=== PATIENT | female | born 1970 | race Caucasian/White ===

== ENCOUNTER 2019-01-14 08:53 | Observation (INO) ==
[2019-01-14] MEDS ORDERED: SODIUM CHLORIDE 0.9% 1000ML 1,000 ML IV ONE (09:33)
--- NOTE | 2019-01-14 09:56 | XRay Report ---
XR chest 1V portable CLINICAL HISTORY: Stroke. COMPARISON STUDY: 08/23/2016 FINDINGS: The cardiac and mediastinal contours are normal. There is no evidence of focal pulmonary co nsolidation. There is no evidence of failure. No pleural effusions are visualized.[ IMPRESSION: No active disease in the chest. Electronically signed by: Floyd Grant M.D. 01/14/2019 9:54 AM
[2019-01-14 09:57] LABS: Basophils # (auto) 0.04 K/uL (0-0.2); Basophils % (auto) 0.3 %; Eosinophils % (auto) 2.6 %; Hematocrit (blood only) 37.9 % (37-47); Hemoglobin 12.7 g/dL (12.0-16.0); Immature Granulocytes # (auto) 0.03 K/uL (0.00-0.02); Immature Granulocytes % (auto) 0.3 %; Lymphocytes # (auto) 1.48 K/uL (1.2-3.4); Lymphocytes % (auto) 12.6 %; Mean Corpuscular Hgb Conc 33.5 g/dL (32-36); Mean Corpuscular Volume 89.2 fL (80-100); Mean Platelet Volume 10.3 fL (7.4-10.4); Monocytes # (auto) 0.75 K/uL (0.11-0.59); Monocytes % (auto) 6.4 %; Neutrophils % (auto) 77.8 %; Platelet Count 337 K/uL (130-400); RDW Coefficient of Variation 13.5 % (11.5-14.5); RDW Standard Deviation 44.1 fL (36.4-46.3); Red Blood Count 4.25 M/uL (4.2-5.4)
[2019-01-14 10:08] LABS: Partial Thromboplastin Ratio 0.8; Partial Thromboplastin Time 22.8 Seconds (21.0-31.0); Prothrombin Time 10.3 Seconds (9.0-12.0)
--- NOTE | 2019-01-14 10:10 | CT Scan Report ---
CT OF THE HEAD WITHOUT CONTRAST CLINICAL HISTORY: Stroke evaluation COMPARISON STUDY: No previous studies for comparison. CT DOSE: 614.27 mGy.cm TECHNIQUE: Helical axial images of the head were obtained without IV contrast. Automated exposure con trol was utilized for the study. A dose lowering technique was utilized adhering to the principles o f ALARA. FINDINGS: No acute intracranial hemorrhage, midline shift or mass effect is present. Brain findings n ormal. Ventricular system is normal. The basilar cisterns are patent. There are no extra-axial collec tions. Randall-white differentiation is maintained. There are no findings to suggest acute dural sinus t hrombosis or acute territorial infarct. There is mild ethmoid sinus mucosal thickening. There are no significant calvarial abnormalities. IMPRESSION: No acute intracranial findings. Electronically signed by: Froilan Restrepo M.D. 01/14/2019 10:09 AM
[2019-01-14 10:12] LABS: Alanine Aminotransferase 21 U/L (12-78); Albumin Level 3.4 gm/dl (3.4-5.0); Aspartate Aminotransferase 16 U/L (15-37); BUN Creatinine Ratio 16.2 (10-20); Blood Urea Nitrogen 11 mg/dl (7-18); Calcium 8.9 mg/dl (8.5-10.1); Carbon Dioxide 27 mmol/L (21-32); Chloride 106 mmol/L (98-107); Creatinine Clr Calc Pharmacy 98.5 ml/min; Est GFR (African American) 118.7; Est GFR (Non-African American) 102.5; Glucose 94 mg/dl (70-99); Magnesium 2.2 mg/dl (1.8-2.4); Potassium 4.1 mmol/L (3.5-5.1); Sodium 139 mmol/L (136-145)
[2019-01-14 10:17] LABS: Albumin Globulin Ratio 0.8 (0.9-2); Alkaline Phosphatase 83 U/L (45-117); Bilirubin,Total 0.7 mg/dl (0.2-1); Globulin 4.2 gm/dl (2.5-4.0); Total Protein 7.6 gm/dl (6.4-8.2); Troponin I < 0.015 ng/ml (0-0.045)
[2019-01-14] MEDS ORDERED: KETOROLAC TROMETHAMINE 15 MG/ML VIAL IV ONE (11:52)
[2019-01-14] MEDS ORDERED: PROCHLORPERAZINE 2 ML IV ONE (11:52)
[2019-01-14] MEDS ORDERED: DiphenhydrAMINE HCL 50 MG/ML VIAL IV STA (11:52)
--- NOTE | 2019-01-14 14:17 | History & Physical Report ---
Date of Service January 14, 2019 Assessment & Plan (1) Headache: (2) Paresthesia: This is a 48yo F with a PMH of asthma and hypothyroidism who presents with headache and LUE paresthesias early this morning. -Headache improved after migraine cocktail, still experiencing LUE paresthesias -Considered cervical radiculopathy but no neck pain/reduced ROM -CT head without acute abnormality -Check MRI brain w/wo contrast, carotid doppler ultrasound, echo w/ bubble study -Full dose aspirin given.Baby aspirin and atorvastatin 40mg to be given in AM -Neuro checks, PT, OT, speech therapy evaluations -Routine neurology consult (3) Hypothyroidism: TSH pending -Continue levothyroxine (4) Asthma: Recent asthma exacerbation 2 weeks ago but back to baseline -No shortness of breath, lung exam without wheezing -Continue home Breo Ellipta inhaler, albuterol inhaler/nebs PRN DVT Ppx: SQ Lovenox Code status: FULL PCP: Nini Dispo: Observation med tele. Plan to return home once medically stable. Patient seen in collaboration with Dr. Sanders. Please see addendum. History of Present Illness Chief Complaint: headache, LUE parethesias Primary Care Provider: Ninfa Terrazas MD This is a 48yo F with a PMH of asthma and hypothyroidism who presents with headache starting early this morning. Patient woke up around 3 AM with a throbbing frontal headache and then developed left upper extremity numbness and tingling approximately an hour later. Denies any difficulty speaking or swallowing, weakness or ambulatory dysfunction. No chest pain or shortness of breath. Denies history of headaches or migraine. No personal or family stroke history. Had an asthma exacerbation and URI 2 weeks ago and has completed course of antibiotics and prednisone. Also, was started on sertaline last week for pre-menopausal symptoms. Denies fever, chills, lightheadedness, visual changes, confusion, neck pain, chest pain, palpitations, shortness of breath, nausea, vomiting, abdominal pain, dysuria, diarrhea or constipation. Follows with Dr. Terrazas as PCP. In ED, was found to be afebrile and hemodynamically stable. Lab work with mild leukocytosis of 11.7 K, no other abnormalities noted. Was given migraine cocktail of Compazine, Toradol and Benadryl with resolution of headache. Still experiencing left upper extremity paresthesias, particularly in dorsum of left hand. CT head without acute changes. Chest x-ray without acute cardiopulmonary findings. EKG with normal sinus rhythm. ED provider discussed with Dr. Pimentel, who would like to bring patient in for stroke workup. Allergies Allergy/AdvReac Type Severity Reaction Status Date / Time amoxicillin Allergy Severe airway Unverified 08/19/16 11:37 closed Sulfa (Sulfonamide Allergy Severe closes Verified 08/19/16 11:37 Antibiotics) airway Home Medications Home Medications Medication Instructions Recorded Confirmed Type albuterol sulfate 1.25 mg INHALATION QID PRN 01/14/19 01/14/19 History albuterol sulfate 2 puff INHALATION QID PRN 01/14/19 01/14/19 History fluticasone-vilanterol [Breo 1 inh INHALATION DAILY 01/14/19 01/14/19 History Ellipta] levothyroxine 50 mcg PO DAILY 01/14/19 01/14/19 History multivitamin 1 cap PO DAILY 01/14/19 01/14/19 History norethindrone-ethin estradiol 1 tab PO DAILY 01/14/19 01/14/19 History [Jose Daniel (28)] pantoprazole [Protonix] 40 mg PO DAILY PRN 01/14/19 01/14/19 History sertraline 25 mg PO DAILY 01/14/19 01/14/19 History Past Med/Surg History Medical History Asthma (Chronic) Hypothyroidism (Chronic) Surgical History History of gastric bypass (Chronic) Family History Other Diabetes Gallbladder disease Heart disease Hypertension Lung disease Social History Preferred Language: Setswana Communication Ability: Effective Beliefs That Will Affect Care: None marital status: Current Living Situation: Alone current occupational status: employed Other Information That Helps Us Care for You: No Feels Safe at Home: Yes Safety Concerns: Feels Safe At This Time Smoking Status: Never smoker Hx Alcohol Use: No Hx Substance Use: No Review of Systems All systems reviewed & are unremarkable except as noted in HPI & below Physical Exam Vital Signs (Past 24 Hours): Last Vital Signs Temp 36.7 C 01/14/19 09:01 Pulse 59 L 01/14/19 13:23 Resp 20 01/14/19 13:23 BP 140/81 01/14/19 13:23 Pulse Ox 98 01/14/19 13:23 Physical Exam: General Appearance: WD/WN, no apparent distress Head: normocephalic, atraumatic Eyes: normal inspection, PERRL, EOMI ENT: hearing grossly normal, pharynx normal (moist mucous membranes) Neck: supple, no JVD, no adenopathy Respiratory/Chest: lungs clear to auscultation. No wheezes, rales or rhonci. No respiratory distress or accessory muscle use Cardiovascular: regular rate, rhythm, no murmur, normal peripheral pulses Abdomen/GI: normal bowel sounds, soft, non-tender to palpation Extremities/Musculoskelatal: normal inspection, no calf tenderness, normal capillary refill, no pedal edema Neurologic/Psych: alert, normal mood/affect, oriented x 3. CN II-XII grossly intact. Strength and sensation intact throughout extremities Skin: normal color, warm/dry Results & Data Laboratory Results Short CBC 01/14/19 Range/Units 09:45 WBC 11.70 H (4.8-10.8) K/uL Hgb 12.7 (12.0-16.0) g/dL Hct 37.9 (37-47) % Plt Count 337 (130-400) K/uL BMP 01/14/19 09:45 Sodium 139 Potassium 4.1 Chloride 106 Carbon Dioxide 27 BUN 11 Creatinine 0.70 Glucose 94 Calcium 8.9 Cardiac Enzymes 01/14/19 Range/Units 09:45 Troponin I < 0.015 (0-0.045) ng/ml Liver Function 01/14/19 Range/Units 09:45 Total Bilirubin 0.7 (0.2-1) mg/dl AST 16 (15-37) U/L ALT 21 (12-78) U/L Alkaline Phosphatase 83 (45-117) U/L Albumin 3.4 (3.4-5.0) gm/dl Diagnostic Findings CT head: IMPRESSION: No acute intracranial findings. CXR: IMPRESSION: No active disease in the chest. ECG Rhythm: normal sinus Code Status & VTE Plan Code Status FULL VTE Prophylaxis Plan VTE Prophylaxis will be ordered: Yes Supervising Physician Co-Signing Physician Notes Attending addendum: The patient was seen and examined in emergency room She is a 48yo F with a PMH of asthma and hypothyroidism who presents with headache and LUE paresthesias early this morning. 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 No focal sensory and motor deficit appreciated Admission labs, imaging studies and EKG reviewed Unremarkable labs and examination Presented with strokelike symptoms Agree with assessment and plan as outlined above by Moises Sanders (1) Headache Headache chronicity pattern: unspecified pattern Headache type: unspecified Intractability: not intractable Qualified Code(s): R51 - Headache
--- NOTE | 2019-01-14 15:54 | Emergency Department Note ---
Entered by Mila Wills acting as a scribe for History of Present Illness General Chief complaint: Headache Stated complaint: HEADACHE, TINGLING L ARM AND FINGERS, TOES NUMB Source: patient History of Present Illness Onset (ago): hour(s) (6.5 hours ago) Location: head Pain Consistency: + other (episode) Maximum Pain Intensity: 4 Quality: + aching Associated symptoms: + denies other symptoms (neck pain, rhinorrhea, abdominal pain, diarrhea), + weakness (in left hand) and + other (numbness/tingling in left arm, tingling in toes, leg cramping, left shoulder pain); no chest pain, no cough and no nausea/vomiting The patient is a 48 year old female who presents to the Emergency Room with complaints of an episode of a headache starting 6.5 hours ago. The patient states that she woke up with the headache and it is in the front of her head. She states that 2 hours after the headache started she noticed a numbness and tingling in her left arm. She states that it feels similar to pins and needles. She states that the tingling is on the top part of her arm. She states that it goes the whole way down to her hand and was more her pinky and ring finger till she arrived here. She states that since arrival at the ED the tingling has radiated over into the other three fingers. She notes that she also developed a left shoulder pain since arriving. She notes that none of the tingling is on the palm of her hand. 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 The patient denies cough, rhinorrhea, neck pain, chest pain, abdominal pain, nausea, vomiting, diarrhea, and a history of strokes. Home Medications Home Medications Medication Instructions Recorded Confirmed Type albuterol sulfate 1.25 mg INHALATION QID PRN 01/14/19 01/14/19 History albuterol sulfate 2 puff INHALATION QID PRN 01/14/19 01/14/19 History fluticasone-vilanterol [Breo 1 inh INHALATION DAILY 01/14/19 01/14/19 History Ellipta] levothyroxine 50 mcg PO DAILY 01/14/19 01/14/19 History multivitamin 1 cap PO DAILY 01/14/19 01/14/19 History norethindrone-ethin estradiol 1 tab PO DAILY 01/14/19 01/14/19 History [Jose Daniel (28)] pantoprazole [Protonix] 40 mg PO DAILY PRN 01/14/19 01/14/19 History sertraline 25 mg PO DAILY 01/14/19 01/14/19 History Allergies Allergy/AdvReac Type Severity Reaction Status Date / Time amoxicillin Allergy Severe airway Unverified 08/19/16 11:37 closed Sulfa (Sulfonamide Allergy Severe closes Verified 08/19/16 11:37 Antibiotics) airway Past Med/Surg History Medical History Asthma (Chronic) Hypothyroidism (Chronic) Surgical History History of gastric bypass (Chronic) Family History Other Diabetes Gallbladder disease Heart disease Hypertension Lung disease Social History Preferred Language: [place] Communication Ability: Effective Beliefs That Will Affect Care: None marital status: Current Living Situation: Alone current occupational status: employed Other Information That Helps Us Care for You: No Feels Safe at Home: Yes Safety Concerns: Feels Safe At This Time Smoking Status: Never smoker Hx Alcohol Use: No Hx Substance Use: No Review of Systems See HPI for pertinent positives & negatives. and A total of 10 systems reviewed and were otherwise negative Physical Exam Vital Signs Vital Signs - 24 hr 01/14/19 09:01 01/14/19 12:33 01/14/19 13:23 Temperature 36.7 C Temperature Source Oral Sepsis Recent Fever Within 48 Hours No Sepsis New/Unexplained Change in Mental Status No Sepsis Action Taken by Nursing No Action Required Pulse Rate 77 Pulse Rate [Apical] 59 L Respiratory Rate 20 20 20 Respiratory Effort / Characteristics Non-Labored Spontaneous Respiratory Depth Normal Respiratory Pattern Regular Blood Pressure 137/87 Blood Pressure [Right Arm] 140/81 Blood Pressure Mean 103 Blood Pressure Mean [Right Arm] 100 Pulse Oximetry 98 98 98 Oxygen Delivery Method Room Air Room Air Room Air 01/14/19 13:56 Temperature Temperature Source Sepsis Recent Fever Within 48 Hours Sepsis New/Unexplained Change in Mental Status Sepsis Action Taken by Nursing Pulse Rate Pulse Rate [Apical] Respiratory Rate Respiratory Effort / Characteristics Respiratory Depth Respiratory Pattern Blood Pressure Blood Pressure [Right Arm] Blood Pressure Mean Blood Pressure Mean [Right Arm] Pulse Oximetry Oxygen Delivery Method Room Air GENERAL: Sitting up in bed, alert, well appearing, well nourished, no distress, non-toxic EYE EXAM: normal conjunctiva. OROPHARYNX: no exudate, no erythema, lips, buccal mucosa, and tongue normal and mucous membranes are moist NECK: supple, no nuchal rigidity, no adenopathy, non-tender LUNGS: Clear to auscultation. Normal chest wall mechanics HEART: no murmurs, S1 normal and S2 normal ABDOMEN: abdomen soft, non-tender, normo-active bowel, sounds, no masses, no rebound or guarding. BACK: Back is symmetrical on inspection and there is no deformity, no midline tenderness, no CVA tenderness. SKIN: no rashes and no bruising UPPER EXTREMITIES: upper extremities are grossly normal. LOWER EXTREMITIES: No pitting edema. NEURO EXAM: Normal sensorium, cranial nerves II-XII intact, normal speech, faint weakness with grasp of left hand, no weakness of legs. No drift. Finger to nose intact. Gross sensation intact. Course ED COURSE: Vital signs were reviewed and showed that they were normal. The patients medical record was reviewed The above diagnostic studies were performed and reviewed. ED treatments and interventions as stated above. 0927: The patient was evaluated in room A4B. A complete history and physical examination was performed. 1155: Upon reevaluation, the patient is resting comfortably. I discussed my findings with the patient and she understands and agrees with the treatment plan. Based on the patients age, coexisting illnesses, exam and lab findings the decision to treat as an inpatient was made. The patient remained stable while under my care. The patient will be evaluated for further management. 1239: I discussed the patient's case with Dr. Kaylie Ortiz. He recommends the patietn coming in for further management. 1306: I reviewed the patient's case with BELLA Quiroz [facility] Hospitalist. Sh will evaluate the patient for further management. Consultations Consultation #1: I discussed the patient's case with Dr. Kaylie Ortiz. He recommends the patietn coming in for further management. Time: 12:39 Consultation #2: I reviewed the patient's case with Melba Vasquez PA-C - [facility] Hospitalist. Sh will evaluate the patient for further management. Time: 13:06 Administered Medications Discontinued Medications Diphenhydramine HCl (Benadryl) 50 mg IV NOW STA Stop: 01/14/19 11:53 Last Admin: 01/14/19 12:17 Dose: 50 mg Documented by: [id number] Sodium Chloride (Nss 1000ml) 1,000 mls @ 999 mls/hr IV .Q1H1M ONE Stop: 01/14/19 10:33 Last Infusion: 01/14/19 11:05 Dose: 0 mls/hr Documented by: [id number] Admin: 01/14/19 09:43 Dose: 999 mls/hr Documented by: [id number] Prochlorperazine (Compazine) 2 mls @ 1 mls/min IV ONE ONE Stop: 01/14/19 11:53 Last Admin: 01/14/19 12:16 Dose: 1 mls/min Documented by: [id number] Ketorolac Tromethamine (Toradol) 15 mg IV NOW ONE Stop: 01/14/19 11:53 Last Admin: 01/14/19 12:17 Dose: 15 mg Documented by: [id number] Medical Decision Making Differential Diagnosis Differential Diagnosis includes but is not limited to ischemic Stroke, hemorrhagic stroke, bells palsy, mass, neoplasm, migraine headache, seizure, subarachnoid hemorrhage, TIA, and transient global amnesia. Medical Records Attestation: I reviewed the patient's medical records. Home Medications Current Medication List: was personally reviewed by me Laboratory Data Attestation: I reviewed the patient's lab results. Result diagrams: 01/14/19 09:45 01/14/19 09:45 Lab Results 01/14/19 01/14/19 01/14/19 Range/Units 09:45 09:45 09:45 WBC 11.70 H (4.8-10.8) K/uL RBC 4.25 (4.2-5.4) M/uL Hgb 12.7 (12.0-16.0) g/dL Hct 37.9 (37-47) % MCV 89.2 (80-100) fL MCH 29.9 (25-34) pg MCHC 33.5 (32-36) g/dL RDW Std Deviation 44.1 (36.4-46.3) fL RDW Coeff of Nany 13.5 (11.5-14.5) % Plt Count 337 (130-400) K/uL MPV 10.3 (7.4-10.4) fL Immature Gran % (Auto) 0.3 % Neut % (Auto) 77.8 % Lymph % (Auto) 12.6 % Kern % (Auto) 6.4 % Eos % (Auto) 2.6 % Baso % (Auto) 0.3 % Immature Gran # (Auto) 0.03 H (0.00-0.02) K/uL Neut # (Auto) 9.10 H (1.4-6.5) K/uL Lymph # (Auto) 1.48 (1.2-3.4) K/uL Kern # (Auto) 0.75 H (0.11-0.59) K/uL Eos # (Auto) 0.30 (0-0.5) K/uL Baso # (Auto) 0.04 (0-0.2) K/uL PT 10.3 (9.0-12.0) Seconds INR 1.0 (0.9-1.1) APTT 22.8 (21.0-31.0) Seconds PTT Ratio 0.8 Sodium 139 (136-145) mmol/L Potassium 4.1 (3.5-5.1) mmol/L Chloride 106 (98-107) mmol/L Carbon Dioxide 27 (21-32) mmol/L Anion Gap 7.0 (3-11) BUN 11 (7-18) mg/dl Creatinine 0.70 (0.6-1.2) mg/dl Est Cr Clr Drug Dosing 98.5 ml/min Est GFR ( Amer) 118.7 Est GFR (Non-Af Amer) 102.5 BUN/Creatinine Ratio 16.2 (10-20) Glucose 94 (70-99) mg/dl Calcium 8.9 (8.5-10.1) mg/dl Magnesium 2.2 (1.8-2.4) mg/dl Total Bilirubin 0.7 (0.2-1) mg/dl AST 16 (15-37) U/L ALT 21 (12-78) U/L Alkaline Phosphatase 83 (45-117) U/L Troponin I < 0.015 (0-0.045) ng/ml Total Protein 7.6 (6.4-8.2) gm/dl Albumin 3.4 (3.4-5.0) gm/dl Globulin 4.2 H (2.5-4.0) gm/dl Albumin/Globulin Ratio 0.8 L (0.9-2) TSH (0.300-4.500) uIu/ml 01/14/19 Range/Units 09:45 WBC (4.8-10.8) K/uL RBC (4.2-5.4) M/uL Hgb (12.0-16.0) g/dL Hct (37-47) % MCV (80-100) fL MCH (25-34) pg MCHC (32-36) g/dL RDW Std Deviation (36.4-46.3) fL RDW Coeff of Nany (11.5-14.5) % Plt Count (130-400) K/uL MPV (7.4-10.4) fL Immature Gran % (Auto) % Neut % (Auto) % Lymph % (Auto) % Kern % (Auto) % Eos % (Auto) % Baso % (Auto) % Immature Gran # (Auto) (0.00-0.02) K/uL Neut # (Auto) (1.4-6.5) K/uL Lymph # (Auto) (1.2-3.4) K/uL Kern # (Auto) (0.11-0.59) K/uL Eos # (Auto) (0-0.5) K/uL Baso # (Auto) (0-0.2) K/uL PT (9.0-12.0) Seconds INR (0.9-1.1) APTT (21.0-31.0) Seconds PTT Ratio Sodium (136-145) mmol/L Potassium (3.5-5.1) mmol/L Chloride (98-107) mmol/L Carbon Dioxide (21-32) mmol/L Anion Gap (3-11) BUN (7-18) mg/dl Creatinine (0.6-1.2) mg/dl Est Cr Clr Drug Dosing ml/min Est GFR ( Amer) Est GFR (Non-Af Amer) BUN/Creatinine Ratio (10-20) Glucose (70-99) mg/dl Calcium (8.5-10.1) mg/dl Magnesium (1.8-2.4) mg/dl Total Bilirubin (0.2-1) mg/dl AST (15-37) U/L ALT (12-78) U/L Alkaline Phosphatase (45-117) U/L Troponin I (0-0.045) ng/ml Total Protein (6.4-8.2) gm/dl Albumin (3.4-5.0) gm/dl Globulin (2.5-4.0) gm/dl Albumin/Globulin Ratio (0.9-2) TSH 2.170 (0.300-4.500) uIu/ml Imaging Data Radiologist's Impression: Radiology results as stated below per my review and the radiologist's interpretation: XR chest 1V portable CLINICAL HISTORY: Stroke. COMPARISON STUDY: 08/23/2016 FINDINGS: The cardiac and mediastinal contours are normal. There is no evidence of focal pulmonary consolidation. There is no evidence of failure. No pleural effusions are visualized.[ IMPRESSION: No active disease in the chest. Electronically signed by: Floyd Grant M.D. 01/14/2019 9:[address] OF THE HEAD WITHOUT CONTRAST CLINICAL HISTORY: Stroke evaluation COMPARISON STUDY: No previous studies for comparison. CT DOSE: 614.27 mGy.cm TECHNIQUE: Helical axial images of the head were obtained without IV contrast. Automated exposure control was utilized for the study. A dose lowering technique was utilized adhering to the principles of ALARA. FINDINGS: No acute intracranial hemorrhage, midline shift or mass effect is present. Brain findings normal. Ventricular system is normal. The basilar cisterns are patent. There are no extra-axial collections. Randall-white differentiation is maintained. There are no findings to suggest acute dural sinus thrombosis or acute territorial infarct. There is mild ethmoid sinus mucosal thickening. There are no significant calvarial abnormalities. IMPRESSION: No acute intracranial findings. Electronically signed by: Froilan Restrepo M.D. 01/14/2019 10:09 AM ECG Data Attestation: I personally reviewed and interpreted this ECG as follows: Indication: weakness Rate (beats per minute): 67 Rhythm: sinus rhythm Findings: + other (normal axis); no PVC Blood Pressure Blood Pressure Findings: Normal blood pressure Blood Pressure Disposition: did not require urgent referral MDM Narrative Patient is a 48-year-old female who presents the ER for left-sided arm paresthesias associated with weakness in her grasp which is been there since Saturday. Labs were obtained and showed a mild leukocytosis of 11.7 thousand. No significant anemia. INR is unremarkable. Troponin is negative. LFTs bilirubin is unremarkable. TSH is normal. CT is negative. EKG is nondiagnostic. Chest x-ray was unremarkable. Patient was given IE Toradol, Compazine and Benadryl. Did have some mild improvement of the headache. Patient was discussed with neurology and discussed case with hospitalist for possible TIA rule out. Neuro exam was otherwise completely intact with exception may be faint weakness in grasp of the left hand. Impression & Plan TIA (transient ischemic attack), Headache, Paresthesia Discharge Plan Visit Data Chief Complaint: Headache Stated Complaint: HEADACHE, TINGLING L ARM AND FINGERS, TOES NUMB ED Provider: Deandre Martinez Discharge Problem: TIA (transient ischemic attack), Headache, Paresthesia Patient Disposition: Being Evaluated by Hospitalist Forms Stand Alone Forms: [facility] Prescriptions Prescriptions: No Action Jose Daniel (28) 0.4-35 mg-mcg tablet 1 tab PO DAILY RF: 0 sertraline 25 mg tablet 25 mg PO DAILY RF: 0 albuterol sulfate 2.5 mg /3 mL (0.083 %) Solution For Nebulization 1.25 mg INHALATION QID PRN (Reason: Shortness Of Breath) RF: 0 levothyroxine 50 mcg tablet 50 mcg PO DAILY RF: 0 pantoprazole [Protonix] 40 mg Tablet,Delayed Release (Dr/Ec) 40 mg PO DAILY PRN (Reason: Acid Reflux) RF: 0 albuterol sulfate 90 mcg/actuation Hfa Aerosol Inhaler 2 puff INHALATION QID PRN (Reason: Shortness Of Breath) RF: 0 multivitamin Capsule 1 cap PO DAILY RF: 0 Breo Ellipta 100-25 mcg/dose Blister With Device 1 inh INHALATION DAILY RF: 0 Referrals Referrals: Ninfa Terrazas MD [Primary Care Provider] - Discharge Problem: Headache Qualifiers: Headache type: unspecified Headache chronicity pattern: unspecified pattern Intractability: not intractable Qualified Code(s): R51 - Headache The scribe's documentation has been prepared under my direction and personally reviewed by me in its entirety. I confirm that the note above accurately reflects all work, treatment, procedures, and medical decision making performed by me.
[2019-01-14] MEDS ORDERED: POLYETHYLENE (MIRALAX) 17 GM PACK PO PRN (16:35)
[2019-01-14] MEDS ORDERED: ALBUTEROL HFA 8 GM INHALER INH PRN (16:35)
[2019-01-14] MEDS ORDERED: ONDANSETRON INJ 2 MG/ML 2 ML VIAL IV PRN (16:35)
[2019-01-14] MEDS ORDERED: ASPIRIN CHEW 324 MG PO STA (16:35)
[2019-01-14] MEDS ORDERED: PANTOprazole 40 MG TAB PO PRN (16:35)
[2019-01-14] MEDS ORDERED: ACETAMINOPHEN 325 MG TAB PO PRN (16:35)
[2019-01-14] MEDS ORDERED: PHARMACIST DISCHARGE MED REC CONSULT PRN (16:35)
[2019-01-14] MEDS ORDERED: ALBUTEROL 0.083% NEBU SOLN 3 ML VIAL INH PRN (16:35)
[2019-01-14] MEDS ORDERED: ASPIRIN 325 MG ECTAB PO STA (17:56)
[2019-01-14] MEDS: ENOXAPARIN INJ 40 MG/0.4 ML SYR SQ SCH (18:13)
[2019-01-14 18:14] LABS: Estimated Average Glucose 114 mg/dl; Hemoglobin A1C 5.6 % (4.5-5.6)
[2019-01-14] MEDS ORDERED: GADOBUTROL 65ML VIAL IV PRN (18:26)
--- NOTE | 2019-01-14 19:01 | Magnetic Resonance Report ---
MR brain wo/w con CLINICAL HISTORY: 48 years-old Female presenting with stroke evaluation, headache this morning, left arm numbness and tingling, difficulty grasping. TECHNIQUE: Multisequence, multiplanar MR imaging of the brain was performed before and after the admi nistration of intravenous contrast. IV contrast: 7 mL of Gadavist. COMPARISON: Noncontrast head CT from earlier today. FINDINGS: Localizer images: Unremarkable. Ventricles and sulci normal in size. Brain parenchyma normal in appearance with preserved castro-white differentiation. No abnormal parenchymal enhancement. No mass effect or midline shift. No restricted diffusion to suggest acute ischemia. No hemorrhage. No extra-axial fluid collection. T2 skull base flow voids preserved. Bone marrow signal intensity within the calvarium within normal l imits. Mucosal thickening in paranasal sinuses. IMPRESSION: 1. No acute intracranial pathology. No abnormal enhancement. Electronically signed by: Kip Pulido M.D. 01/14/2019 7:00 PM
--- NOTE | 2019-01-14 20:09 | Ultrasound Report ---
US carotid doppler BI CLINICAL HISTORY: 48 years-old Female presenting with stroke evaluation (headache, LUE paresthesias). TECHNIQUE: Real-time grayscale and color and spectral Doppler ultrasound imaging of the bilateral car otid arteries was performed. Stenosis measurements were based on NASCET-like criteria (distal lumen d iameter as the denominator for stenosis measurement). COMPARISON: None. FINDINGS: RIGHT: Common carotid artery (CCA): Patent. Peak systolic velocity (PSV) 88 cm/s. Internal carotid artery (ICA): Patent. PSV 77 cm/s. End diastolic velocity (EDV) 33 cm/s. ICA/CCA (systolic) ratio: 0.9. External carotid artery (ECA): Patent. PSV 87 cm/s. LEFT: CCA: Patent. PSV 102 cm/s. ICA: Patent. PSV 73 cm/s. EDV 33 cm/s. ICA/CCA (systolic) ratio: 0.7. ECA: Patent. PSV 72 cm/s. Bilateral antegrade flow within the vertebral arteries. Blood pressure: Brachial: Right: 126/81 mmHg, Left: 126/67 mmHg. Reference ranges: Stenosis measurements are compared to reference velocity parameters by the Society of Radiologists in Ultrasound (SRU) consensus and Sonographic NASCET index (S-NASCET). * SRU Primary parameters: ICA PSV <125 cm/s = normal or less than 50% stenosis; ICA PSV 125-230 cm/s = 50-69% stenosis; ICA PSV >230 cm/s = greater than or equal to 70% stenosis. * SRU Additional parameters: ICA/CCA PSV ratio <2 = normal or less than 50% stenosis; ratio 2-4 = 5 0-69% stenosis; ratio >4 = greater than or equal to 70% stenosis. ICA EDV <40 cm/s = normal or less t meyer 50% stenosis; ICA EDV 40-100 cm/s = 50-69% stenosis; ICA EDV >100 cm/s = greater than or equal to 70% stenosis. * S-NASCET parameters: Deceleration spectral broadening + PSV <125 cm/s = less than 50% stenosis; pa nsystolic spectral broadening + PSV <125 cm/s = 16-49% stenosis; pansystolic spectral broadening + PS V >125 cm/s + EDV <110 cm/s or ICA/CCA PSV ratio 2-4 = 50-69% stenosis; pansystolic spectral broadeni ng + PSV >270 cm/s OR EDV >110 cm/s OR ICA/CCA PSV ratio >4 = 70-79% stenosis; EDV >140 cm/s = 80-99% stenosis. IMPRESSION: 1. No hemodynamically significant stenosis seen within the carotid arteries. Electronically signed by: Kip Pulido M.D. 01/14/2019 8:08 PM
[2019-01-14] MEDS: BREO ELLIPTA - ORDER AWAITING ACTION SCH (23:20)
[2019-01-15] MEDS: LEVOTHYROXINE SODIUM 50 MCG TABLET PO SCH (05:57)
[2019-01-15 06:14] LABS: Basophils # (auto) 0.04 K/uL (0-0.2); Basophils % (auto) 0.6 %; Eosinophils # (auto) 0.43 K/uL (0-0.5); Eosinophils % (auto) 6.8 %; Hematocrit (blood only) 33.8 % (37-47); Hemoglobin 11.2 g/dL (12.0-16.0); Immature Granulocytes # (auto) 0.01 K/uL (0.00-0.02); Immature Granulocytes % (auto) 0.2 %; Lymphocytes # (auto) 2.47 K/uL (1.2-3.4); Lymphocytes % (auto) 39.3 %; Mean Corpuscular Hgb Conc 33.1 g/dL (32-36); Mean Corpuscular Volume 88.5 fL (80-100); Mean Platelet Volume 10.5 fL (7.4-10.4); Monocytes % (auto) 7.9 %; Neutrophils # (auto) 2.84 K/uL (1.4-6.5); Neutrophils % (auto) 45.2 %; Platelet Count 269 K/uL (130-400); RDW Coefficient of Variation 13.5 % (11.5-14.5); RDW Standard Deviation 44.1 fL (36.4-46.3); Red Blood Count 3.82 M/uL (4.2-5.4); White Blood Count 6.29 K/uL (4.8-10.8)
[2019-01-15 06:40] LABS: BUN Creatinine Ratio 19.2 (10-20); Calcium 8.1 mg/dl (8.5-10.1); Creatinine Clr Calc Pharmacy 118.9 ml/min; Est GFR (African American) 126.3; Potassium 3.7 mmol/L (3.5-5.1)
[2019-01-15] MEDS: BREO ELLIPTA - ORDER AWAITING ACTION SCH ×3 (08:17→23:12)
[2019-01-15] MEDS: ATORVASTATIN 40 MG TAB PO SCH (08:18)
[2019-01-15] MEDS: ASPIRIN 81 MG ECTAB PO SCH (08:18)
[2019-01-15] MEDS: SERTRALINE HCL 50 MG TABLET PO SCH (08:18)
[2019-01-15] MEDS: MULTIVITAMIN TAB PO SCH (08:18)
--- NOTE | 2019-01-15 13:32 | Neurology Consultation ---
Date of Consultation January 15, 2019 Assessment & Plan (1) Paresthesia: 1. MRI brain no acute findings 2. carotid doppler- no significant stenosis 3. TTE pending read 4. MRI c spine - ordered 5. taking estrogen should be on aspirin 81 mg daily 6. optimize HLD, HTN LDL <70 7. further recommendations after MRI c spine follow up in neurology in 4-6 weeks after discharge for any further testing or imaging Kami Nguyễn PAC (2) Headache: 1. headache resolved with migraine cocktail 2. may have history of headache with sinus issues Supervising Physician Co-Signing Physician Notes I have seen and discussed above patient with Dr Jacinto Pimentel, neurology I saw Sania today and she feels significantly better her headache levels down to 5-6 she does not have any photophobia but really has not challenged herself by opening her blinds I suggested she do so. She intends to go home tomorrow and the Depakote because an IV program is done she is going be switched to oral therapy and hopefully will be discharged to home on her regular medicines and the Ajovy which hopefully after another few months of injections will serve to reduce her headache frequency significantly. She is failed on almost every other therapeutic regimen to date safer Botox and unfortunately she was not felt to be a candidate for because of lack of insurance coverage. At this point her exam is normal as is still little stiffness of her neck with no meningeal signs and the rest of it is nonfocal. Neurology will sign off anticipating her discharge tomorrow and follow-up arrangements to see Kami Nguyễn in our clinic are already in place. Jacinto Pimentel MD History of Present Illness Reason for Consultation: stroke evaluation Requesting Physician: Ghulam Navarrete MD Attending Physician: Ghulam Navarrete MD History of Present Illness Sania Daugherty is a 48 year old right handed female with a PMH of asthma and hypothyroidism who presented to the ED with a headache. She woke at 3 AM with a throbbing frontal headache and then developed left upper extremity numbness and tingling which lasted about a day. The numbness in the arm resolved after the headache resolved. Denies any difficulty speaking or swallowing, weakness or ambulatory dysfunction. No chest pain or shortness of breath. She notes she does get headaches but they are sinus related. She had an asthma exacerbation and URI 2 weeks ago and has completed course of antibiotics and prednisone. Also, was started on sertaline 2 weeks ago. She was afebrile and hemodynamically stable during admission. Lab work with mild leukocytosis of 11.7 K, no other abnormalities noted. Was given migraine cocktail of Compazine, Toradol and Benadryl with resolution of headache. Still experiencing left upper extremity paresthesias, particularly in dorsum of left hand. She states her headache has resolved and she does feel back to normal but her left 1st and 2nd digit is painful and numb. 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 denies CP, SOB, abdominal pain, once sided weakness, vision changes, N, V, bowel or bladder incontinence. She did have gastric bipass surgery in the past. Allergies Allergy/AdvReac Type Severity Reaction Status Date / Time amoxicillin Allergy Severe airway Unverified 08/19/16 11:37 closed Sulfa (Sulfonamide Allergy Severe closes Verified 08/19/16 11:37 Antibiotics) airway Home Medications Home Medications Medication Instructions Recorded Confirmed Type albuterol sulfate 1.25 mg INHALATION QID PRN 01/14/19 01/14/19 History albuterol sulfate 2 puff INHALATION QID PRN 01/14/19 01/14/19 History fluticasone-vilanterol [Breo 1 inh INHALATION DAILY 01/14/19 01/14/19 History Ellipta] levothyroxine 50 mcg PO DAILY 01/14/19 01/14/19 History multivitamin 1 cap PO DAILY 01/14/19 01/14/19 History norethindrone-ethin estradiol 1 tab PO DAILY 01/14/19 01/14/19 History [Jose Daniel (28)] pantoprazole [Protonix] 40 mg PO DAILY PRN 01/14/19 01/14/19 History sertraline 25 mg PO DAILY 01/14/19 01/14/19 History Patient History Medical History Asthma (Chronic) Hypothyroidism (Chronic) Surgical History History of gastric bypass (Chronic) Family History Other Diabetes Gallbladder disease Heart disease Hypertension Lung disease Social History Communication Ability: Effective Beliefs That Will Affect Care: None marital status: Current Living Situation: Alone current occupational status: employed Other Information That Helps Us Care for You: No Feels Safe at Home: Yes Safety Concerns: Feels Safe At This Time Smoking Status: Never smoker Hx Alcohol Use: No Hx Substance Use: No Physical Exam Vital Signs (Past 24 Hours): Last Vital Signs Temp 36.7 C 01/15/19 11:31 Pulse 61 01/15/19 11:31 Resp 18 01/15/19 11:31 BP 137/88 01/15/19 11:31 Pulse Ox 96 01/15/19 11:31 Physical Exam: Constitutional: appearance nourished, healthy and normal Ears, Nose, Mouth and Throat: mucous membranes moist, no injection and skin normal, eyes normal Cardiovascular: normal S-1 and S-2 and regular rate and rhythm Respiratory: clear to auscultation (CTA) and no rales, ronchi or wheeze Musculoskeletal: no peripheral edema and good distal pulses Skin: no stigmata of neurocutaneous disease noted and normal and intact Eyes: extraocular muscles intact (EOMI) and pupils equal, round and reactive to light (PERRL) NEUROLOGIC EXAMINATION: Mental status: Alert and interactive Oriented to full date and location Oriented to person Speech fluent with no evidence of aphasia Cranial Nerves smile eye brow raise symmetric Reflexes: Deep tendon reflexes were symmetrical and brisk throughout Sensory: intact to light and cool touch Coordination: finger to nose no bi pass, fine reaching tremor bilaterally Gait/Stance: Posture normal sitting up in bed Motor: Negative for pronator drift of out stretched arms with eyes closed. 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 No abnormal enhancement. carotid doppler- No hemodynamically significant stenosis seen within the carotid arteries. (1) Headache Headache chronicity pattern: unspecified pattern Headache type: unspecified Intractability: not intractable Qualified Code(s): R51 - Headache
--- NOTE | 2019-01-15 16:01 | Hospitalist Progress Note ---
Date of Service January 15, 2019 Assessment & Plan (1) Headache: (2) Paresthesia: Patient is a 48 yr female with H/O asthma and hypothyroidism presents with headache and LUE paresthesias for one day duration Brain MRI:No acute intracranial pathology. No abnormal enhancement. Carotid Doppler:No hemodynamically significant stenosis seen within the carotid arteries. MRI C-Spine: Pending Lyme Screen, ESR--Pending ECHO-pending Headache resolved Still has mild LUE paresthesias Continue Aspirin, lipitor for now Neurology following PT/OT, speech eval (3) Hypothyroidism: TSH: Normal Continue levothyroxine (4) Asthma: No signs of acute Exacerbation Continue home Breo Ellipta inhaler, albuterol inhaler/nebs PRN DVT Px: SQ Lovenox Code status: FULL Disposition: Plan to discharge home when stable Subjective Patient is seen and examined at bedside States headache has resolved Reports LUE numbness is improved Denies chest pain, SOB, dizziness No other complaints Physical Exam Vital Signs (Past 24 Hours): Last Vital Signs Temp 36.7 C 01/15/19 15:29 Pulse 63 01/15/19 15:29 Resp 18 01/15/19 15:29 BP 127/81 01/15/19 15:29 Pulse Ox 96 01/15/19 15:29 Physical Exam: Physical Exam: Vitals signs as noted above General Appearance:Moderately built and nourished, no apparent distress Head: normocephalic, Atraumatic Eyes: normal inspection, EOMI Neck: supple, Trachea midline Respiratory/Chest: Normal breath sounds, CTA Cardiovascular: S1, S2, No murmur Abdomen/GI:Soft, Non tender, Bowel sounds present Extremities/Musculoskelatal:normal inspection, no edema Neurologic/Psych:AAOX3, grossly no focal neurological deficits Skin: normal color, warm Results & Data Laboratory Results Short CBC 01/15/19 Range/Units 05:56 WBC 6.29 (4.8-10.8) K/uL Hgb 11.2 L (12.0-16.0) g/dL Hct 33.8 L (37-47) % Plt Count 269 (130-400) K/uL BMP 01/15/19 05:56 Sodium 139 Potassium 3.7 Chloride 108 H Carbon Dioxide 26 BUN 11 Creatinine 0.58 L Glucose 79 Calcium 8.1 L Diagnostic Findings MRI Brain: No acute intracranial pathology. No abnormal enhancement. Carotid Doppler: No hemodynamically significant stenosis seen within the carotid arteries. (1) Headache Headache chronicity pattern: unspecified pattern Headache type: unspecified Intractability: not intractable Qualified Code(s): R51 - Headache
[2019-01-15 16:38] LABS: Lyme Ab IgG w/WB Rflx Negative (Negative); Lyme Ab IgM w/WB Rflx Negative (Negative)
--- NOTE | 2019-01-15 17:43 | Magnetic Resonance Report ---
MR cervical spine wo con CLINICAL HISTORY: 48 years-old Female presenting with headache yesterday morning, now with left arm n umbness and tingling radiating into the left hand and difficulty grasping with the left hand. TECHNIQUE: Multisequence, multiplanar MR imaging of the cervical spine was performed without the use of intravenous contrast. IV contrast: None. COMPARISON: None. FINDINGS: Localizer images: Unremarkable. Straightening of normal cervical lordosis likely positional and related to degenerative changes. Vert ebral bodies maintain normal height, alignment, and bone marrow signal intensity. Diffuse vertebral d isc desiccation. Additional multilevel degenerative changes further detailed below: C2-3: No significant neural foraminal or spinal canal narrowing. C3-4: Trace disc osteophyte complex with minimal effacement of the right ventral thecal sac. No signi ficant neural foraminal narrowing. C4-5: Disc osteophyte complex mildly effaces the ventral thecal sac with trace contouring of the ante rior spinal cord. No significant neural foraminal narrowing. C5-6: Disc osteophyte complex and right uncovertebral hypertrophy result in mild effacement of the ve ntral thecal sac with right paracentral contouring of the anterior spinal cord. Mild right neural for aminal narrowing. C6-7: No significant neural foraminal or spinal canal narrowing. C7-T1: No significant neural foraminal or spinal canal narrowing. Cervical spinal cord maintains normal morphology and signal intensity throughout. Randall cervical junct ion normal. No paraspinal muscle edema. No gross evidence of an epidural collection. Remaining visual ized soft tissues within normal limits. IMPRESSION: 1. Multilevel degenerative changes of the cervical spine with mild right neural foraminal narrowing at C5-6 and mild spinal canal narrowing at C4-5 and C5-6. 2. No evidence of a spinal cord lesion. Electronically signed by: Kip Pulido M.D. 01/15/2019 5:41 PM
[2019-01-15] MEDS: ENOXAPARIN INJ 40 MG/0.4 ML SYR SQ SCH (17:47)
[2019-01-16] MEDS: LEVOTHYROXINE SODIUM 50 MCG TABLET PO SCH (06:14)
[2019-01-16 08:42] LABS: Basophils # (auto) 0.04 K/uL (0-0.2); Basophils % (auto) 0.5 %; Eosinophils % (auto) 5.2 %; Hematocrit (blood only) 37.9 % (37-47); Immature Granulocytes # (auto) 0.01 K/uL (0.00-0.02); Immature Granulocytes % (auto) 0.1 %; Lymphocytes # (auto) 1.81 K/uL (1.2-3.4); Lymphocytes % (auto) 23.5 %; Mean Corpuscular Hgb Conc 34.3 g/dL (32-36); Mean Corpuscular Volume 88.1 fL (80-100); Mean Platelet Volume 10.7 fL (7.4-10.4); Monocytes # (auto) 0.48 K/uL (0.11-0.59); Monocytes % (auto) 6.2 %; Neutrophils # (auto) 4.95 K/uL (1.4-6.5); Neutrophils % (auto) 64.5 %; Platelet Count 288 K/uL (130-400); RDW Coefficient of Variation 13.6 % (11.5-14.5); RDW Standard Deviation 43.8 fL (36.4-46.3); White Blood Count 7.69 K/uL (4.8-10.8)
[2019-01-16] MEDS: BREO ELLIPTA - ORDER AWAITING ACTION SCH (08:45)
[2019-01-16] MEDS: SERTRALINE HCL 50 MG TABLET PO SCH (08:46)
[2019-01-16] MEDS: MULTIVITAMIN TAB PO SCH (08:46)
[2019-01-16] MEDS: ATORVASTATIN 40 MG TAB PO SCH (08:46)
[2019-01-16] MEDS: ASPIRIN 81 MG ECTAB PO SCH ×2 (08:47→10:38)
[2019-01-16 09:16] LABS: BUN Creatinine Ratio 13.7 (10-20); Creatinine Clr Calc Pharmacy 95.5 ml/min; Est GFR (African American) 114.8; Potassium 3.6 mmol/L (3.5-5.1)
--- NOTE | 2019-01-16 12:47 | Hospitalist Progress Note ---
Date of Service January 16, 2019 Assessment & Plan (1) Headache: (2) Paresthesia: Patient is a 48 yr female with H/O asthma and hypothyroidism presents with headache and LUE paresthesias for one day duration Possible Quervain's type tendinitis or localized arthritis Brain MRI:No acute intracranial pathology. No abnormal enhancement. Carotid Doppler:No hemodynamically significant stenosis seen within the carotid arteries. MRI C-Spine: Multilevel degenerative changes of the cervical spine with mild right neural foraminal narrowing at C5-6 and mild spinal canal narrowing at C4-5 and C5-6. No evidence of a spinal cord lesion. Lyme Screen--Negative , ESR--Normal ECHO-No ASD Headache resolved Still has mild LUE paresthesias Continue Aspirin 81 mg daily as per Neurology recommendations Appreciate Neurology Input PT/OT, speech eval Needs FU with neurology upon discharge (3) Hypothyroidism: TSH: Normal Continue levothyroxine (4) Asthma: No signs of acute Exacerbation Continue home Breo Ellipta inhaler, albuterol inhaler/nebs PRN DVT Px: SQ Lovenox Code status: FULL Disposition: Plan to discharge home when stable Subjective Patient is seen and examined at bedside Still has left UE mild numbness and pain of thumb and index finger Mild occipital headache today Discussed with Neurology today Denies chest pain, SOB, dizziness No other complaints Physical Exam Vital Signs (Past 24 Hours): Last Vital Signs Temp 36.7 C 01/16/19 12:04 Pulse 90 01/16/19 12:04 Resp 16 01/16/19 12:04 BP 130/81 01/16/19 12:04 Pulse Ox 95 01/16/19 12:04 Physical Exam: Physical Exam: Vitals signs as noted above General Appearance:Moderately built and nourished, no apparent distress Head: normocephalic, Atraumatic Eyes: normal inspection, EOMI Neck: supple, Trachea midline Respiratory/Chest: Normal breath sounds, CTA Cardiovascular: S1, S2, No murmur Abdomen/GI:Soft, Non tender, Bowel sounds present Extremities/Musculoskelatal:normal inspection, no edema Neurologic/Psych:AAOX3, grossly no focal neurological deficits Skin: normal color, warm Results & Data Laboratory Results Short CBC 01/16/19 Range/Units 08:19 WBC 7.69 (4.8-10.8) K/uL Hgb 13.0 (12.0-16.0) g/dL Hct 37.9 (37-47) % Plt Count 288 (130-400) K/uL BMP 01/16/19 08:19 Sodium 142 Potassium 3.6 Chloride 110 H Carbon Dioxide 24 BUN 10 Creatinine 0.72 Glucose 165 H Calcium 9.0 (1) Headache Headache chronicity pattern: unspecified pattern Headache type: unspecified Intractability: not intractable Qualified Code(s): R51 - Headache
[2019-01-16] MEDS ORDERED: STROKE PATIENT DISCHARGE STA (12:53)
--- NOTE | 2019-01-16 12:54 | Discharge Summary ---
Date of Service January 16, 2019 Admission HPI Per Admitting Provider This is a 48yo F with a PMH of asthma and hypothyroidism who presents with headache starting early this morning. Patient woke up around 3 AM with a throbbing frontal headache and then developed left upper extremity numbness and tingling approximately an hour later. Denies any difficulty speaking or swallowing, weakness or ambulatory dysfunction. No chest pain or shortness of breath. Denies history of headaches or migraine. No personal or family stroke history. Had an asthma exacerbation and URI 2 weeks ago and has completed course of antibiotics and prednisone. Also, was started on sertaline last week for pre-menopausal symptoms. Denies fever, chills, lightheadedness, visual changes, confusion, neck pain, chest pain, palpitations, shortness of breath, nausea, vomiting, abdominal pain, dysuria, diarrhea or constipation. Follows with Dr. Terrazas as PCP. In ED, was found to be afebrile and hemodynamically stable. Lab work with mild leukocytosis of 11.7 K, no other abnormalities noted. Was given migraine cocktail of Compazine, Toradol and Benadryl with resolution of headache. Still experiencing left upper extremity paresthesias, particularly in dorsum of left hand. CT head without acute changes. Chest x-ray without acute cardiopulmonary findings. EKG with normal sinus rhythm. ED provider discussed with Dr. Pimentel, who would like to bring patient in for stroke workup. Admission Exam Per Admitting Provider General Appearance: WD/WN, no apparent distress Head: normocephalic, atraumatic Eyes: normal inspection, PERRL, EOMI ENT: hearing grossly normal, pharynx normal (moist mucous membranes) Neck: supple, no JVD, no adenopathy Respiratory/Chest: lungs clear to auscultation. No wheezes, rales or rhonci. No respiratory distress or accessory muscle use Cardiovascular: regular rate, rhythm, no murmur, normal peripheral pulses Abdomen/GI: normal bowel sounds, soft, non-tender to palpation Extremities/Musculoskelatal: normal inspection, no calf tenderness, normal capillary refill, no pedal edema Neurologic/Psych: alert, normal mood/affect, oriented x 3. CN II-XII grossly intact. Strength and sensation intact throughout extremities Skin: normal color, warm/dry Principal Diagnosis Discharge Information Discharge Diagnosis Possible Quervain's type tendinitis or localized arthritis Left Upper Extremity Paresthesia Discharge Goals Decrease discomfort,Improve disease control, Improve function Discharge Activity Limitations Resume your previous activity Discharge Data Allergies Allergy/AdvReac Type Severity Reaction Status Date / Time amoxicillin Allergy Severe airway Unverified 08/19/16 11:37 closed Sulfa (Sulfonamide Allergy Severe closes Verified 08/19/16 11:37 Antibiotics) airway Consultations 01/14/19 13:24 ED Decision to Admit Stat 01/14/19 16:35 Consult Case Management - Discharge Planning Routine Consult Neurology Routine Procedures Performed MRI Brain: No acute intracranial pathology. No abnormal enhancement. MRI C-Spine: 1. Multilevel degenerative changes of the cervical spine with mild right neural foraminal narrowing at C5-6 and mild spinal canal narrowing at C4-5 and C5-6. 2. No evidence of a spinal cord lesion. Carotid Doppler: No hemodynamically significant stenosis seen within the carotid arteries. CXR: No active disease in the chest. Ordered Studies 01/14/19 09:34 CT head/brain wo con Stat 01/14/19 16:35 MR brain wo/w con Routine US carotid doppler BI Routine 01/15/19 13:36 MR cervical spine wo con Routine Hospital Course (1) Headache: (2) Paresthesia: Patient is a 48 yr female with H/O asthma and hypothyroidism presents with headache and LUE paresthesias for one day duration Possible Quervain's type tendinitis or localized arthritis Brain MRI:No acute intracranial pathology. No abnormal enhancement. Carotid Doppler:No hemodynamically significant stenosis seen within the carotid arteries. MRI C-Spine: Multilevel degenerative changes of the cervical spine with mild right neural foraminal narrowing at C5-6 and mild spinal canal narrowing at C4-5 and C5-6. No evidence of a spinal cord lesion. Lyme Screen--Negative , ESR--Normal ECHO-No ASD Headache resolved Still has mild LUE paresthesias Continue Aspirin 81 mg daily as per Neurology recommendations Appreciate Neurology Input PT/OT, speech eval Needs FU with neurology upon discharge (3) Hypothyroidism: TSH: Normal Continue levothyroxine (4) Asthma: No signs of acute Exacerbation Continue home Breo Ellipta inhaler, albuterol inhaler/nebs PRN DVT Px: SQ Lovenox Code status: FULL Disposition: Plan to discharge home when stable Total Time Total Time Spent Total Time Spent (In Minutes): 37 minutes Total Time Includes: Examination of the Patient, Discharge Planning, Medication Reconciliation, Communication With Other Providers and Other Discharge Plan Discharge Items Patient Disposition: Home - Self-Care Reason For Visit: HEADACHE,LUE PARESTHESIAS Discharge Diagnosis: Possible Quervain's type tendinitis or localized arthritis Left Upper Extremity Paresthesia Discharge Goals: Decrease discomfort, Improve disease control and Improve function Activity: Resume your previous activity Exercise/Sports: Gradually increase as tolerated Non-emergency contact: Primary Care Provider and Neurologist Call non-emergency contact if: you have any medication questions, your symptoms worsen, your pain is not controlled, your pain is worsening, your pain is unusual for you, your pain is concerning for you and you have a fever Follow-up/Referrals: Ninfa Terrazas MD [Primary Care Provider] - Diet: Heart Healthy Addtl Provider Instructions: Follow up with your PCP on 01/23/19 at 1:00pm Follow up with your Neurologist Kami anderson PA-C on February 10, 2019 at 10:40AM Consider following up with your Orthopedic Surgeon as advised Seek immediate medical attention if your symptoms reoccur or worsen Risk Factors for Stroke: You can reduce your chances of stroke by working with your medical provider to adopt a healthy lifestyle. Some specific ways to lower your chance of stroke are: * If you are a smoker, now is the time to stop smoking cigarettes * If you are diabetic, improve the control of your blood sugars * Avoid excessive amounts of alcohol * Control high blood pressure * Lose weight if you are overweight * Be sure to lead an active lifestyle * Eat a healthy diet low in salt, cholesterol and fat You should know about other risk factors for stroke that you are unable to control. These include: * Age 55 years or older * Male gender * Certain racial groups: , or / * Family History of Stroke, Mini stroke or Heart Attack * Sickle Cell Disease Follow Up: It is important for you to keep your follow up appointments with your medical provider. Who to Call and When: Medical Emergencies: Call 911 immediately if you experience any of the following warning signs and symptoms of Stroke: * Sudden numbness or weakness of the face, arm or leg, especially on one side of the body * Sudden confusion, trouble speaking or understanding * Sudden trouble seeing in one or both eyes * Sudden trouble walking, dizziness, loss of balance or coordination * Sudden severe headache with no cause Do not delay calling 911 if you experience any warning signs or symptoms of a stroke. Delay in seeking medical attention may affect what treatments can be given to you. . Prescriptions: New aspirin [Ecotrin Low Strength] 81 mg Tablet,Delayed Release (Dr/Ec) 81 mg PO QAM Qty: 30 RF: 0 Continued Balziva (28) 0.4-35 mg-mcg tablet 1 tab PO DAILY RF: 0 sertraline 25 mg tablet 25 mg PO DAILY RF: 0 albuterol sulfate 2.5 mg /3 mL (0.083 %) Solution For Nebulization 1.25 mg INHALATION QID PRN (Reason: Shortness Of Breath) RF: 0 levothyroxine 50 mcg tablet 50 mcg PO DAILY RF: 0 pantoprazole [Protonix] 40 mg Tablet,Delayed Release (Dr/Ec) 40 mg PO DAILY PRN (Reason: Acid Reflux) RF: 0 albuterol sulfate 90 mcg/actuation Hfa Aerosol Inhaler 2 puff INHALATION QID PRN (Reason: Shortness Of Breath) RF: 0 multivitamin Capsule 1 cap PO DAILY RF: 0 Breo Ellipta 100-25 mcg/dose Blister With Device 1 inh INHALATION DAILY RF: 0 Stand-Alone Forms: My [facility], Work/School Release (Inpt) Discharge Orders: Discharge Order (Routine); Ordered 01/16/19 Ordered By: Ghulam Navarrete Admission Data Admit Date/Time: 01/14/19 13:58 Attending Provider: Ghulam Navarrete Admit Provider: Isaías Sanders Primary Care Provider: Ninfa Terrazas Other Providers: Jacinto Pimentel Manabendra Service: Telemetry Other Interventions: Discharge Summary Assessment (RN) Last Done: 01/16/19 12:58 Pending Studies at Discharge: No DC Date/Time DO NOT enter until pt leaves facility: 01/16/19 14:03
== END 2019-01-16 14:03 | disposition home or self-care (01) ==
LOC: ED 08:53 → 2N 08:53